=== PATIENT | female | born 1975 | race American Indian/Alaskan Native ===

== ENCOUNTER 2016-11-16 21:08 | Inpatient (IN) | payer OTHER ==
--- NOTE | 2016-11-16 23:30 | History and Physical Report ---
History of Present Illness Date of examination: 11/16/16 Date of admission: 11/16/16 23:14 Chief complaint: WateryDischarge History of present illness: 41-year-old at 38+5 weeks presents with above complaints and issues, she is a [facility] patient. Patient seen in triage for vaginal discharge, and deceleration noted. BPP obtained 6 out of 8, -2 for fluid, GABRIELA is ~ 4. Past History Past Medical History: hypertension (oral history of hypertension, no medication) Past Surgical History: no surgical history [employer] History: denies: chlamydia, gonorrhea, hepatitis B, hepatitis C, herpes, HIV , syphilis, trichomonas Social history: single, full code. denies: smoking, alcohol abuse, prescription drug abuse, IV drug use - Obstetrical History Expected Date of Delivery: 11/25/16 Actual Gestation: 38 Week(s) 5 Day(s) : 4 Para: 2 Medications and Allergies Allergies Allergy/AdvReac Type Severity Reaction Status Date / Time No Known Allergies Allergy Unverified 11/16/16 21:20 Review of Systems Constitutional: no weight gain, no fever, no chills, no sweats Eyes: no diplopia, no photophobia Cardiovascular: no chest pain, no palpitations, no syncope, no lightheadedness, no shortness of breath, no dyspnea on exertion, no high blood pressure Respiratory: no hemoptysis, no shortness of breath, no dyspnea on exertion Gastrointestinal: no abdominal pain, no nausea, no vomiting Genitourinary: no vaginal bleeding, no vaginal discharge, no leakage of fluid - Vital Signs Vital signs: Vital Signs Pulse BP Pulse Ox 86 141/78 97 11/16/16 22:25 11/16/16 22:25 11/16/16 22:25 Temp Pulse Resp BP Pulse Ox 92 H 141/78 98 11/16/16 22:40 11/16/16 22:25 11/16/16 22:40 - Physical Exam Lungs: Positive: Clear to auscultation, Normal air movement Abdomen: Positive: normal appearance, soft. Negative: distention, tenderness, guarding Genitourinary (Female): Positive: normal external genitalia Uterus: Positive: enlarged (EFW ~ 3500) Adnexa: both: normal Extremities: Positive: normal - Obstetrical FHR: category 1 Cervical Dilatation: 2 (Per RN exam) Results All other labs normal. Assessment and Plan A: 41-year-old at 38+5 weeks with oligohydramnios -No records available at this time P: -Admit -Routine labs -Start induction process -Anticipate normal vaginal delivery - Patient Problems (1) 38 weeks gestation of Current Visit: Yes Status: Acute (2) Oligohydramnios in third trimester Current Visit: Yes Status: Acute Qualifiers: Fetus number: F (3) AMA (advanced maternal age) multigravida 35+ Current Visit: Yes Status: Acute Qualifiers: Trimester: T
[2016-11-16] MEDS ORDERED: MINERAL OIL PO PRN (23:33)
[2016-11-16] MEDS ORDERED: BRETHINE IVP PRN (23:33)
[2016-11-16] MEDS ORDERED: XYLOCAINE 2% INFILTRATI ONE (23:33)
[2016-11-16] MEDS ORDERED: POLYCILLIN/NS 2 GM/100 ML 2 GM/100 ML BAG IV ONE (23:33)
[2016-11-16] MEDS ORDERED: SUBLIMAZE IV PRN (23:33)
[2016-11-16] MEDS ORDERED: ePHEDrine SULFATE IV PRN (23:33)
[2016-11-16] MEDS ORDERED: BRETHINE SUB-Q PRN (23:33)
[2016-11-16] MEDS ORDERED: ZOFRAN IV PRN (23:33)
[2016-11-16] MEDS ORDERED: PITOCin/NS 30 UNIT/500ML 30 UNITS/500 ML BAG IV SCH ×2 (23:45)
[2016-11-16] MEDS ORDERED: PITOCin/NS 20 UNIT/1000ML DRIP 20 UNITS/1,000 ML BAG IV SCH (23:45)
--- NOTE | 2016-11-16 23:47 | Ultrasound Report ---
FINAL REPORT PROCEDURE: US OB BPP WO NON-STRESS TECHNIQUE: Sonographic evaluation for breathing, movement, tone, and amniotic fluid volume was performed. CPT 44962 HISTORY: Non reassuring NST COMPARISON: No prior studies are available for comparison. FINDINGS: Amniotic fluid volume: Score of 0 breathing: Normal-score 2. movement: Normal-score 2. tone: Normal. Score: 6 of 8 IMPRESSION: Ultrasound biophysical profile or of 6 of 8
--- NOTE | 2016-11-16 23:50 | Ultrasound Report ---
FINAL REPORT PROCEDURE: US OB LIMITED TECHNIQUE: Real-time limited sonographic examination was performed for evaluation of size, position, heartbeat, fluid volume for each fetus with image documentation (1 or more fetuses). CPT 81790 HISTORY: GABRIELA for Decel COMPARISON: No prior studies are available for comparison. FINDINGS: There is a single fetus in a vertex presentation. heart activity is identified at 144 beats per minute. The 4 quadrant amniotic fluid volume is 4 centimeters. This is decreased. IMPRESSION: Single fetus in a vertex presentation. No other measurements are obtained on this study. Decreased amniotic fluid volume at 4 centimeters consistent with oligohydramnios.
[2016-11-17 00:50] LABS: Hemoglobin 11.5 gm/dl (10.1-14.3); Mean Corpuscular HGB Conc 33 % (30-34); Mean Corpuscular Hemoglobin 29 pg (28-32); Mean Corpuscular Volume 87 fl (79-97); Platelet Count 220 K/mm3 (140-440); Red Blood Count 4.02 M/mm3 (3.65-5.03); White Blood Count 12.9 K/mm3 (4.5-11.0)
[2016-11-17 00:54] LABS: Bacteria,Urine 1+ /HPF (Negative); Bilirubin,Urine NEG (Negative); Blood,Urine NEG (Negative); Ketones,Urine NEG (Negative); Leukocyte Esterase,Urine NEG (Negative); Mucus,Urine FEW /HPF; Nitrite,Urine NEG (Negative); Protein,Urine <15 mg/dL mg/dL (Negative); Urobilinogen,Urine < 2.0 mg/dL (<2.0)
[2016-11-17] MEDS: LACTATED RINGERS 1,000 ML IV SCH ×2 (00:55→10:35)
[2016-11-17 01:00] LABS: Red Cell Distribution Width 20.5 % (13.2-15.2)
[2016-11-17 01:10] LABS: Alanine Aminotransferase 13 units/L (7-56)
[2016-11-17 03:54] LABS: Lactate Dehydrogenase 178 units/L (91-180); Uric Acid 3.5 mg/dL (3.5-7.6)
[2016-11-17] MEDS: POLYCILLIN/NS 1 GM/50 ML 1 GM/50 ML BAG IV SCH ×2 (05:45→10:35)
--- NOTE | 2016-11-17 08:11 | Progress Note ---
Assessment and Plan - Patient Problems (1) 38 weeks gestation of Current Visit: Yes Status: Acute (2) Oligohydramnios in third trimester Current Visit: Yes Status: Acute Qualifiers: Fetus number: F (3) AMA (advanced maternal age) multigravida 35+ Current Visit: Yes Status: Acute Qualifiers: Trimester: T Subjective - Subjective Date of service: 11/17/16 Patient reports: new complaints, movement normal, no loss of fluid, no vaginal bleeding Objective - Vital Signs Vital Signs: Vital Signs - 12hr 11/16/16 11/16/16 11/16/16 22:25 22:30 22:35 Pulse Rate 86 86 86 Blood Pressure 141/78 O2 Sat by Pulse 97 96 98 Oximetry 11/16/16 11/17/16 11/17/16 22:40 01:12 01:13 Pulse Rate 92 H 88 83 Blood Pressure 130/81 O2 Sat by Pulse 98 98 Oximetry 11/17/16 11/17/16 11/17/16 01:17 01:22 01:27 Pulse Rate 90 78 81 Blood Pressure O2 Sat by Pulse 99 99 99 Oximetry 11/17/16 11/17/16 11/17/16 01:32 01:37 01:42 Pulse Rate 84 81 81 Blood Pressure O2 Sat by Pulse 99 99 98 Oximetry 11/17/16 11/17/16 11/17/16 01:43 01:47 01:57 Pulse Rate 77 85 95 H Blood Pressure 130/75 O2 Sat by Pulse 99 97 Oximetry 11/17/16 11/17/16 11/17/16 01:59 02:02 02:07 Pulse Rate 86 83 85 Blood Pressure O2 Sat by Pulse 84 99 99 Oximetry 11/17/16 11/17/16 11/17/16 02:12 02:13 02:17 Pulse Rate 81 79 82 Blood Pressure 126/63 O2 Sat by Pulse 99 98 Oximetry 11/17/16 11/17/16 11/17/16 02:22 02:27 02:33 Pulse Rate 85 86 79 Blood Pressure O2 Sat by Pulse 98 98 98 Oximetry 11/17/16 11/17/16 11/17/16 02:38 02:43 02:48 Pulse Rate 76 85 77 Blood Pressure 125/62 O2 Sat by Pulse 99 98 99 Oximetry 11/17/16 11/17/16 11/17/16 02:53 02:58 03:03 Pulse Rate 78 80 75 Blood Pressure O2 Sat by Pulse 99 98 99 Oximetry 11/17/16 11/17/16 11/17/16 03:08 03:13 03:18 Pulse Rate 73 85 82 Blood Pressure O2 Sat by Pulse 99 99 99 Oximetry 11/17/16 11/17/16 11/17/16 03:23 03:28 03:33 Pulse Rate 74 81 72 Blood Pressure O2 Sat by Pulse 98 99 99 Oximetry 11/17/16 11/17/16 11/17/16 03:38 03:43 03:48 Pulse Rate 81 79 73 Blood Pressure 139/77 O2 Sat by Pulse 98 99 99 Oximetry 11/17/16 11/17/16 11/17/16 03:53 03:58 04:03 Pulse Rate 78 73 73 Blood Pressure O2 Sat by Pulse 98 100 99 Oximetry 11/17/16 11/17/16 11/17/16 04:08 04:13 04:18 Pulse Rate 82 78 74 Blood Pressure 134/75 O2 Sat by Pulse 99 99 99 Oximetry 11/17/16 11/17/16 11/17/16 04:23 04:28 04:33 Pulse Rate 74 77 78 Blood Pressure O2 Sat by Pulse 98 99 98 Oximetry 11/17/16 11/17/16 11/17/16 04:38 04:43 04:48 Pulse Rate 93 H 86 80 Blood Pressure 128/77 O2 Sat by Pulse 99 98 98 Oximetry 11/17/16 11/17/16 11/17/16 04:53 04:58 05:03 Pulse Rate 87 80 83 Blood Pressure O2 Sat by Pulse 98 99 98 Oximetry 11/17/16 11/17/16 11/17/16 05:08 05:13 05:18 Pulse Rate 82 77 74 Blood Pressure 125/74 O2 Sat by Pulse 99 99 99 Oximetry 11/17/16 11/17/16 11/17/16 05:23 05:36 05:42 Pulse Rate 89 88 78 Blood Pressure O2 Sat by Pulse 98 95 96 Oximetry 11/17/16 11/17/16 11/17/16 05:43 05:46 05:47 Pulse Rate 77 87 82 Blood Pressure 137/77 O2 Sat by Pulse 94 96 Oximetry 11/17/16 11/17/16 11/17/16 05:51 05:52 05:57 Pulse Rate 81 75 80 Blood Pressure O2 Sat by Pulse 94 97 96 Oximetry 11/17/16 11/17/16 11/17/16 06:02 06:07 06:09 Pulse Rate 81 79 83 Blood Pressure O2 Sat by Pulse 95 96 94 Oximetry 11/17/16 11/17/16 11/17/16 06:12 06:14 06:17 Pulse Rate 97 H 75 78 Blood Pressure 126/75 O2 Sat by Pulse 97 96 Oximetry 11/17/16 11/17/16 11/17/16 06:20 06:22 06:27 Pulse Rate 82 75 73 Blood Pressure O2 Sat by Pulse 94 97 97 Oximetry 11/17/16 11/17/16 11/17/16 06:32 06:37 06:42 Pulse Rate 73 91 H 80 Blood Pressure O2 Sat by Pulse 96 97 94 Oximetry 11/17/16 11/17/16 11/17/16 06:43 06:47 06:52 Pulse Rate 80 85 77 Blood Pressure 120/80 O2 Sat by Pulse 98 97 Oximetry 11/17/16 11/17/16 11/17/16 06:55 06:57 07:02 Pulse Rate 80 73 79 Blood Pressure O2 Sat by Pulse 94 96 96 Oximetry 11/17/16 11/17/16 11/17/16 07:07 07:12 07:13 Pulse Rate 82 81 108 H Blood Pressure 145/79 O2 Sat by Pulse 95 95 Oximetry 11/17/16 11/17/16 11/17/16 07:17 07:27 07:28 Pulse Rate 89 83 83 Blood Pressure O2 Sat by Pulse 98 97 94 Oximetry 11/17/16 11/17/16 11/17/16 07:32 07:33 07:37 Pulse Rate 80 78 83 Blood Pressure O2 Sat by Pulse 94 94 95 Oximetry 11/17/16 11/17/16 11/17/16 07:42 07:43 07:46 Pulse Rate 80 81 86 Blood Pressure 135/77 O2 Sat by Pulse 96 94 Oximetry 11/17/16 11/17/16 11/17/16 07:47 07:52 07:57 Pulse Rate 83 87 85 Blood Pressure O2 Sat by Pulse 96 97 96 Oximetry 11/17/16 08:02 Pulse Rate 89 Blood Pressure O2 Sat by Pulse 97 Oximetry - Exam FHR: category 1 - Labs Labs: Abnormal Labs 06/27/17 06/27/17 00:05 00:05 WBC 12.9 H RDW 20.5 H Creatinine 0.5 L Laboratory Results - last 24 hr 11/17/16 11/17/16 11/17/16 00:05 00:05 00:08 WBC 12.9 H RBC 4.02 Hgb 11.5 Hct 35.0 MCV 87 MCH 29 MCHC 33 RDW 20.5 H Plt Count 220 Creatinine 0.5 L Estimated GFR > 60 Uric Acid 3.5 AST 18 ALT 13 Lactate Dehydrogenase 178 Urine Color Urine Turbidity Urine pH Ur Specific [place] Urine Protein Urine Glucose (UA) Urine Ketones Urine Blood Urine Nitrite Urine Bilirubin Urine Urobilinogen Ur Leukocyte Esterase Urine WBC (Auto) Urine RBC (Auto) U Epithel Cells (Auto) Urine Bacteria (Auto) Urine Mucus Blood Type B POSITIVE Antibody Screen TNR GAEL Antibody Screen Negative 11/17/16 00:26 WBC RBC Hgb Hct MCV MCH MCHC RDW Plt Count Creatinine Estimated GFR Uric Acid AST ALT Lactate Dehydrogenase Urine Color Yellow Urine Turbidity Clear Urine pH 7.0 Ur Specific [place] 1.015 Urine Protein <15 mg/dl Urine Glucose (UA) Neg Urine Ketones Neg Urine Blood Neg Urine Nitrite Neg Urine Bilirubin Neg Urine Urobilinogen < 2.0 Ur Leukocyte Esterase Neg Urine WBC (Auto) 1.0 Urine RBC (Auto) 4.0 U Epithel Cells (Auto) 1.0 Urine Bacteria (Auto) 1+ Urine Mucus Few Blood Type Antibody Screen GAEL Antibody Screen
--- NOTE | 2016-11-17 16:02 | Event Note ---
Date: 11/17/16 She was checked by RN water sponger today, it appears patient is only 1 cm dilated. Plan is to discontinue Pitocin and start Cervidil induction for this night
[2016-11-17] MEDS ORDERED: CERVIDIL VG ONE (19:10)
--- NOTE | 2016-11-18 08:13 | Progress Note ---
Assessment and Plan A: 41-year-old at 38+5 weeks with oligohydramnios -Cat 1 tracing P: -Remove Cervidil at 9 -start Pitocin augmentation -anticipate normal vaginal delivery - Patient Problems (1) 38 weeks gestation of Current Visit: Yes Status: Acute (2) Oligohydramnios in third trimester Current Visit: Yes Status: Acute Qualifiers: Fetus number: F (3) AMA (advanced maternal age) multigravida 35+ Current Visit: Yes Status: Acute Qualifiers: Trimester: T Subjective - Subjective Date of service: 11/18/16 Interval history: patient seen and examined, doing well with no issues. Status post Cervidil overnight Patient reports: new complaints, movement normal, no loss of fluid, no vaginal bleeding Objective - Vital Signs Vital Signs: Vital Signs - 12hr 11/17/16 11/17/16 11/17/16 20:15 20:20 20:25 Temperature Pulse Rate 90 87 89 Respiratory Rate Blood Pressure O2 Sat by Pulse 97 98 97 Oximetry 11/17/16 11/17/16 11/17/16 20:30 20:35 20:40 Temperature Pulse Rate 91 H 89 90 Respiratory Rate Blood Pressure O2 Sat by Pulse 97 97 97 Oximetry 11/17/16 11/17/16 11/17/16 20:45 20:50 20:55 Temperature Pulse Rate 92 H 89 92 H Respiratory Rate Blood Pressure O2 Sat by Pulse 98 96 97 Oximetry 11/17/16 11/17/16 11/17/16 21:00 21:05 21:10 Temperature Pulse Rate 86 94 H 94 H Respiratory Rate Blood Pressure O2 Sat by Pulse 98 97 96 Oximetry 11/17/16 11/17/16 11/17/16 21:15 21:20 21:25 Temperature Pulse Rate 93 H 97 H 90 Respiratory Rate Blood Pressure O2 Sat by Pulse 97 98 97 Oximetry 11/17/16 11/17/16 11/17/16 21:30 21:35 21:40 Temperature Pulse Rate 93 H 88 94 H Respiratory Rate Blood Pressure O2 Sat by Pulse 97 97 97 Oximetry 11/17/16 11/17/16 11/17/16 21:45 21:50 21:55 Temperature Pulse Rate 93 H 90 86 Respiratory Rate Blood Pressure O2 Sat by Pulse 95 96 97 Oximetry 11/17/16 11/17/16 11/17/16 22:00 22:05 22:10 Temperature Pulse Rate 86 88 97 H Respiratory Rate Blood Pressure O2 Sat by Pulse 97 98 98 Oximetry 11/17/16 11/17/16 11/17/16 22:15 22:20 22:25 Temperature Pulse Rate 98 H 91 H 93 H Respiratory Rate Blood Pressure O2 Sat by Pulse 96 96 95 Oximetry 11/17/16 11/17/16 11/17/16 22:30 22:35 22:38 Temperature 98.2 F Pulse Rate 91 H 87 Respiratory 18 Rate Blood Pressure O2 Sat by Pulse 96 98 Oximetry 11/17/16 11/17/16 11/17/16 22:40 22:45 23:00 Temperature Pulse Rate 90 84 90 Respiratory Rate Blood Pressure O2 Sat by Pulse 97 96 97 Oximetry 11/17/16 11/17/16 11/17/16 23:05 23:10 23:15 Temperature Pulse Rate 83 87 88 Respiratory Rate Blood Pressure O2 Sat by Pulse 97 99 99 Oximetry 11/17/16 11/17/16 11/17/16 23:16 23:20 23:22 Temperature 97.7 F Pulse Rate 83 84 Respiratory 20 Rate Blood Pressure 124/72 O2 Sat by Pulse 100 Oximetry 11/17/16 11/17/16 11/17/16 23:25 23:30 23:35 Temperature Pulse Rate 88 85 96 H Respiratory Rate Blood Pressure O2 Sat by Pulse 97 96 94 Oximetry 11/17/16 11/17/16 11/17/16 23:40 23:44 23:45 Temperature Pulse Rate 81 94 H 79 Respiratory Rate Blood Pressure O2 Sat by Pulse 96 94 100 Oximetry 11/17/16 11/17/16 11/18/16 23:50 23:55 00:00 Temperature Pulse Rate 84 87 85 Respiratory Rate Blood Pressure O2 Sat by Pulse 100 99 99 Oximetry 11/18/16 11/18/16 11/18/16 00:05 00:10 00:15 Temperature Pulse Rate 80 81 83 Respiratory Rate Blood Pressure O2 Sat by Pulse 97 97 97 Oximetry 11/18/16 11/18/16 11/18/16 00:20 00:25 00:30 Temperature Pulse Rate 84 87 84 Respiratory Rate Blood Pressure O2 Sat by Pulse 97 98 97 Oximetry 11/18/16 11/18/16 11/18/16 00:35 00:40 00:45 Temperature Pulse Rate 95 H 79 83 Respiratory Rate Blood Pressure O2 Sat by Pulse 97 99 97 Oximetry 11/18/16 11/18/16 11/18/16 00:50 00:55 01:00 Temperature Pulse Rate 88 89 87 Respiratory Rate Blood Pressure O2 Sat by Pulse 96 94 94 Oximetry 11/18/16 11/18/16 11/18/16 01:02 01:05 01:10 Temperature Pulse Rate 85 88 89 Respiratory Rate Blood Pressure O2 Sat by Pulse 93 93 93 Oximetry 11/18/16 11/18/16 11/18/16 01:15 01:20 01:25 Temperature Pulse Rate 87 89 96 H Respiratory Rate Blood Pressure O2 Sat by Pulse 93 93 93 Oximetry 11/18/16 11/18/16 11/18/16 01:30 01:35 01:40 Temperature Pulse Rate 83 82 86 Respiratory Rate Blood Pressure O2 Sat by Pulse 86 93 93 Oximetry 11/18/16 11/18/16 11/18/16 01:45 01:50 01:55 Temperature Pulse Rate 86 91 H 85 Respiratory Rate Blood Pressure O2 Sat by Pulse 94 94 95 Oximetry 11/18/16 11/18/16 11/18/16 02:00 02:05 02:10 Temperature Pulse Rate 88 82 86 Respiratory Rate Blood Pressure O2 Sat by Pulse 95 98 97 Oximetry 11/18/16 11/18/16 11/18/16 02:15 03:43 03:45 Temperature 97.8 F Pulse Rate 89 89 Respiratory 16 Rate Blood Pressure 134/75 O2 Sat by Pulse 99 98 Oximetry 11/18/16 11/18/16 11/18/16 04:43 04:48 04:53 Temperature Pulse Rate 86 87 90 Respiratory Rate Blood Pressure O2 Sat by Pulse 97 97 97 Oximetry 11/18/16 11/18/16 11/18/16 04:58 05:03 05:08 Temperature Pulse Rate 86 80 87 Respiratory Rate Blood Pressure O2 Sat by Pulse 96 96 96 Oximetry 11/18/16 11/18/16 11/18/16 05:13 05:17 05:18 Temperature Pulse Rate 88 95 H 81 Respiratory Rate Blood Pressure O2 Sat by Pulse 95 94 96 Oximetry 11/18/16 11/18/16 11/18/16 05:23 05:28 05:29 Temperature Pulse Rate 85 89 86 Respiratory Rate Blood Pressure O2 Sat by Pulse 95 95 94 Oximetry 11/18/16 11/18/16 11/18/16 05:33 05:35 05:38 Temperature Pulse Rate 85 89 86 Respiratory Rate Blood Pressure O2 Sat by Pulse 94 94 95 Oximetry 11/18/16 11/18/16 11/18/16 05:40 05:43 05:47 Temperature Pulse Rate 89 102 H 86 Respiratory Rate Blood Pressure O2 Sat by Pulse 94 96 94 Oximetry 11/18/16 11/18/16 11/18/16 05:48 05:53 05:58 Temperature Pulse Rate 84 91 H 85 Respiratory Rate Blood Pressure O2 Sat by Pulse 96 96 96 Oximetry 11/18/16 11/18/16 11/18/16 06:03 06:08 06:13 Temperature Pulse Rate 83 87 93 H Respiratory Rate Blood Pressure O2 Sat by Pulse 97 97 96 Oximetry 11/18/16 11/18/16 11/18/16 06:18 06:23 06:27 Temperature Pulse Rate 87 88 93 H Respiratory Rate Blood Pressure 138/77 O2 Sat by Pulse 96 96 Oximetry 11/18/16 11/18/16 11/18/16 06:33 06:34 06:38 Temperature Pulse Rate 86 83 86 Respiratory Rate Blood Pressure O2 Sat by Pulse 95 94 95 Oximetry 11/18/16 11/18/16 11/18/16 06:41 06:43 06:48 Temperature Pulse Rate 83 84 85 Respiratory Rate Blood Pressure O2 Sat by Pulse 94 96 97 Oximetry 11/18/16 11/18/16 11/18/16 06:50 06:53 06:58 Temperature Pulse Rate 84 89 84 Respiratory Rate Blood Pressure O2 Sat by Pulse 94 95 95 Oximetry 11/18/16 11/18/16 11/18/16 06:59 07:03 07:08 Temperature Pulse Rate 87 86 94 H Respiratory Rate Blood Pressure O2 Sat by Pulse 94 96 94 Oximetry 11/18/16 11/18/16 11/18/16 07:13 07:18 07:23 Temperature Pulse Rate 85 84 88 Respiratory Rate Blood Pressure O2 Sat by Pulse 94 96 95 Oximetry 11/18/16 11/18/16 11/18/16 07:28 07:33 07:37 Temperature Pulse Rate 85 91 H 92 H Respiratory Rate Blood Pressure O2 Sat by Pulse 94 96 92 Oximetry 11/18/16 11/18/16 11/18/16 07:38 07:42 07:43 Temperature Pulse Rate 84 87 81 Respiratory Rate Blood Pressure 144/88 O2 Sat by Pulse 97 91 98 Oximetry 11/18/16 11/18/16 11/18/16 07:52 07:57 08:01 Temperature Pulse Rate 85 87 86 Respiratory Rate Blood Pressure O2 Sat by Pulse 95 94 94 Oximetry 11/18/16 11/18/16 08:02 08:03 Temperature 98 F Pulse Rate 81 Respiratory 20 Rate Blood Pressure O2 Sat by Pulse 96 Oximetry - Exam FHR: category 1 Cervical Dilatation: 1 - Labs Labs: Abnormal Labs 11/17/16 11/17/16 00:05 00:05 WBC 12.9 H RDW 20.5 H Creatinine 0.5 L
[2016-11-18] MEDS ORDERED: PITOCin/NS 30 UNIT/500ML 30 UNITS/500 ML BAG IV SCH (09:00)
--- NOTE | 2016-11-18 15:02 | Progress Note ---
Assessment and Plan A: 41-year-old at 38+6 weeks with oligohydramnios -Cat 1 tracing P: -Will AROM at this time -Place IUPC -Continue present care -Anticipate normal vaginal delivery - Patient Problems (1) 38 weeks gestation of Current Visit: Yes Status: Acute (2) Oligohydramnios in third trimester Current Visit: Yes Status: Acute Qualifiers: Fetus number: F (3) AMA (advanced maternal age) multigravida 35+ Current Visit: Yes Status: Acute Qualifiers: Trimester: T Subjective - Subjective Date of service: 11/18/16 Interval history: Patient seen and examined, doing well with no issues. Status post Cervidil overnight, now on Pitocin at 20 mu per minute. On exam, she is 3 cm dilated Patient reports: new complaints, movement normal, no loss of fluid, no vaginal bleeding Objective - Vital Signs Vital Signs: Vital Signs - 12hr 11/18/16 11/18/16 11/18/16 03:43 03:45 04:43 Temperature 97.8 F Pulse Rate 89 86 Respiratory 16 Rate Blood Pressure 134/75 O2 Sat by Pulse 98 97 Oximetry 11/18/16 11/18/16 11/18/16 04:48 04:53 04:58 Temperature Pulse Rate 87 90 86 Respiratory Rate Blood Pressure O2 Sat by Pulse 97 97 96 Oximetry 11/18/16 11/18/16 11/18/16 05:03 05:08 05:13 Temperature Pulse Rate 80 87 88 Respiratory Rate Blood Pressure O2 Sat by Pulse 96 96 95 Oximetry 11/18/16 11/18/16 11/18/16 05:17 05:18 05:23 Temperature Pulse Rate 95 H 81 85 Respiratory Rate Blood Pressure O2 Sat by Pulse 94 96 95 Oximetry 11/18/16 11/18/16 11/18/16 05:28 05:29 05:33 Temperature Pulse Rate 89 86 85 Respiratory Rate Blood Pressure O2 Sat by Pulse 95 94 94 Oximetry 11/18/16 11/18/16 11/18/16 05:35 05:38 05:40 Temperature Pulse Rate 89 86 89 Respiratory Rate Blood Pressure O2 Sat by Pulse 94 95 94 Oximetry 11/18/16 11/18/16 11/18/16 05:43 05:47 05:48 Temperature Pulse Rate 102 H 86 84 Respiratory Rate Blood Pressure O2 Sat by Pulse 96 94 96 Oximetry 11/18/16 11/18/16 11/18/16 05:53 05:58 06:03 Temperature Pulse Rate 91 H 85 83 Respiratory Rate Blood Pressure O2 Sat by Pulse 96 96 97 Oximetry 11/18/16 11/18/16 11/18/16 06:08 06:13 06:18 Temperature Pulse Rate 87 93 H 87 Respiratory Rate Blood Pressure O2 Sat by Pulse 97 96 96 Oximetry 11/18/16 11/18/16 11/18/16 06:23 06:27 06:33 Temperature Pulse Rate 88 93 H 86 Respiratory Rate Blood Pressure 138/77 O2 Sat by Pulse 96 95 Oximetry 11/18/16 11/18/16 11/18/16 06:34 06:38 06:41 Temperature Pulse Rate 83 86 83 Respiratory Rate Blood Pressure O2 Sat by Pulse 94 95 94 Oximetry 11/18/16 11/18/16 11/18/16 06:43 06:48 06:50 Temperature Pulse Rate 84 85 84 Respiratory Rate Blood Pressure O2 Sat by Pulse 96 97 94 Oximetry 11/18/16 11/18/16 11/18/16 06:53 06:58 06:59 Temperature Pulse Rate 89 84 87 Respiratory Rate Blood Pressure O2 Sat by Pulse 95 95 94 Oximetry 11/18/16 11/18/16 11/18/16 07:03 07:08 07:13 Temperature Pulse Rate 86 94 H 85 Respiratory Rate Blood Pressure O2 Sat by Pulse 96 94 94 Oximetry 11/18/16 11/18/16 11/18/16 07:18 07:23 07:28 Temperature Pulse Rate 84 88 85 Respiratory Rate Blood Pressure O2 Sat by Pulse 96 95 94 Oximetry 11/18/16 11/18/16 11/18/16 07:33 07:37 07:38 Temperature Pulse Rate 91 H 92 H 84 Respiratory Rate Blood Pressure 144/88 O2 Sat by Pulse 96 92 97 Oximetry 11/18/16 11/18/16 11/18/16 07:42 07:43 07:52 Temperature Pulse Rate 87 81 85 Respiratory Rate Blood Pressure O2 Sat by Pulse 91 98 95 Oximetry 11/18/16 11/18/16 11/18/16 07:57 08:01 08:02 Temperature Pulse Rate 87 86 81 Respiratory Rate Blood Pressure O2 Sat by Pulse 94 94 96 Oximetry 11/18/16 11/18/16 11/18/16 08:03 08:07 08:10 Temperature 97.6 F Pulse Rate 88 78 Respiratory 20 Rate Blood Pressure 135/81 O2 Sat by Pulse 97 Oximetry 11/18/16 11/18/16 11/18/16 08:12 09:39 09:44 Temperature Pulse Rate 90 91 H 90 Respiratory Rate Blood Pressure 129/91 O2 Sat by Pulse 94 98 98 Oximetry 11/18/16 11/18/16 11/18/16 09:49 09:54 09:59 Temperature Pulse Rate 98 H 100 H 90 Respiratory Rate Blood Pressure O2 Sat by Pulse 98 99 97 Oximetry 11/18/16 11/18/16 11/18/16 10:04 10:09 10:14 Temperature Pulse Rate 96 H 90 89 Respiratory Rate Blood Pressure O2 Sat by Pulse 97 98 97 Oximetry 11/18/16 11/18/16 11/18/16 10:19 10:24 10:29 Temperature Pulse Rate 90 107 H 91 H Respiratory Rate Blood Pressure O2 Sat by Pulse 98 98 99 Oximetry 11/18/16 11/18/16 11/18/16 10:46 10:48 10:51 Temperature Pulse Rate 85 91 H 81 Respiratory Rate Blood Pressure 138/72 O2 Sat by Pulse 100 100 Oximetry 11/18/16 11/18/16 11/18/16 10:56 11:01 11:06 Temperature Pulse Rate 86 92 H 89 Respiratory Rate Blood Pressure O2 Sat by Pulse 100 100 100 Oximetry 11/18/16 11/18/16 11/18/16 11:11 11:16 11:21 Temperature Pulse Rate 90 91 H 88 Respiratory Rate Blood Pressure O2 Sat by Pulse 100 100 100 Oximetry 11/18/16 11/18/16 11/18/16 11:26 11:31 11:36 Temperature Pulse Rate 87 92 H 86 Respiratory Rate Blood Pressure O2 Sat by Pulse 100 100 100 Oximetry 11/18/16 11/18/16 11/18/16 11:41 11:46 11:51 Temperature Pulse Rate 84 84 83 Respiratory Rate Blood Pressure O2 Sat by Pulse 100 100 99 Oximetry 11/18/16 11/18/16 11/18/16 11:56 12:01 12:11 Temperature Pulse Rate 86 87 88 Respiratory Rate Blood Pressure O2 Sat by Pulse 100 99 99 Oximetry 11/18/16 11/18/16 11/18/16 12:16 12:21 12:26 Temperature Pulse Rate 85 87 85 Respiratory Rate Blood Pressure O2 Sat by Pulse 97 96 97 Oximetry 11/18/16 11/18/16 11/18/16 12:31 12:36 12:41 Temperature Pulse Rate 87 82 88 Respiratory Rate Blood Pressure O2 Sat by Pulse 97 98 96 Oximetry 11/18/16 11/18/16 11/18/16 12:42 12:46 12:51 Temperature Pulse Rate 90 90 87 Respiratory Rate Blood Pressure O2 Sat by Pulse 94 97 97 Oximetry 11/18/16 11/18/16 11/18/16 12:55 12:56 13:01 Temperature Pulse Rate 89 82 82 Respiratory Rate Blood Pressure O2 Sat by Pulse 94 95 97 Oximetry 11/18/16 11/18/16 11/18/16 13:04 13:06 13:11 Temperature Pulse Rate 90 83 93 H Respiratory Rate Blood Pressure O2 Sat by Pulse 92 97 95 Oximetry 11/18/16 11/18/16 11/18/16 13:16 13:18 13:21 Temperature Pulse Rate 87 85 90 Respiratory Rate Blood Pressure O2 Sat by Pulse 98 90 99 Oximetry 11/18/16 11/18/16 11/18/16 13:26 13:31 13:36 Temperature Pulse Rate 90 83 86 Respiratory Rate Blood Pressure O2 Sat by Pulse 96 95 95 Oximetry 11/18/16 11/18/16 11/18/16 13:50 13:55 14:00 Temperature Pulse Rate 83 80 82 Respiratory Rate Blood Pressure 132/85 O2 Sat by Pulse 100 98 97 Oximetry 11/18/16 11/18/16 11/18/16 14:05 14:10 14:15 Temperature Pulse Rate 79 77 73 Respiratory Rate Blood Pressure O2 Sat by Pulse 96 95 96 Oximetry 11/18/16 11/18/16 11/18/16 14:20 14:25 14:30 Temperature Pulse Rate 78 78 82 Respiratory Rate Blood Pressure O2 Sat by Pulse 96 97 95 Oximetry 11/18/16 11/18/16 11/18/16 14:35 14:40 14:45 Temperature Pulse Rate 86 71 72 Respiratory Rate Blood Pressure O2 Sat by Pulse 98 99 97 Oximetry 11/18/16 14:50 Temperature Pulse Rate 92 H Respiratory Rate Blood Pressure O2 Sat by Pulse 98 Oximetry - Exam FHR: category 1 Cervical Dilatation: 3 station: -1 - Labs Labs: Abnormal Labs 11/17/16 11/17/16 00:05 00:05 WBC 12.9 H RDW 20.5 H Creatinine 0.5 L
--- NOTE | 2016-11-18 15:29 | Event Note ---
Date: 11/18/16 Reviewed her prenatals, GBS unavailable at this time. Called the clinical technology lab at [phone], it appears sample was only sent ~ 24 hours ago. Microbiology will review sample in about 2 hours and call with a preliminary result
[2016-11-18] MEDS: LACTATED RINGERS 1,000 ML IV SCH (15:46)
[2016-11-18] MEDS: POLYCILLIN/NS 1 GM/50 ML 1 GM/50 ML BAG IV SCH (16:03)
[2016-11-18] MEDS ORDERED: METHERGINE IM ONE (16:57)
[2016-11-18] MEDS ORDERED: DULCOLAX PR PRN (17:09)
[2016-11-18] MEDS ORDERED: TUCKS PAD TP PRN (17:09)
[2016-11-18] MEDS ORDERED: ZOFRAN IV PRN (17:09)
[2016-11-18] MEDS ORDERED: PHENERGAN PR PRN (17:09)
[2016-11-18] MEDS ORDERED: LANSINOH TP PRN (17:09)
[2016-11-18] MEDS ORDERED: METHERGINE IM PRN (17:09)
[2016-11-18] MEDS ORDERED: MILK OF MAGNESIA PO PRN (17:09)
[2016-11-18] MEDS ORDERED: TYLENOL PO PRN (17:09)
[2016-11-18] MEDS ORDERED: BENADRYL PO PRN (17:09)
[2016-11-18] MEDS ORDERED: PHENERGAN PO PRN (17:09)
--- NOTE | 2016-11-18 17:09 | Procedure Note ---
OB Delivery Note - Delivery Date of Delivery: 11/18/16 Surgeon: MAYE VALLE Estimated blood loss: 500cc - Vaginal Delivery presentation: vertex Delivery position: OA Intrapartum events: hemorrhage Delivery induction: cervidil Delivery augmentation: rupture of membranes, pitocin Delivery monitor: external FHT, external uterine, internal uterine Route of delivery: Delivery placenta: spontaneous Delivery cord: 3 umbilical vessels Episiotomy: none Delivery laceration: none Anesthesia: none - A at 1 minute: 8 at 5 minutes: 9 Gender: Male (delivery at 16:53, infant weight 6 lbs. 2 oz. or 2777 g)
[2016-11-18] MEDS ORDERED: SODIUM CHLORIDE FLUSH SYRINGE 10 ML IV SCH (18:00)
[2016-11-18] MEDS ORDERED: PITOCin/NS 20 UNIT/1000ML DRIP 20 UNITS/1,000 ML BAG IV SCH (18:00)
[2016-11-18] MEDS: MOTRIN PO SCH (18:37)
[2016-11-18] MEDS: NORCO 5/325 PO PRN (20:32)
[2016-11-19] MEDS: COLACE PO SCH ×2 (00:10→09:15)
[2016-11-19] MEDS: SENOKOT S PO SCH (00:10)
[2016-11-19] MEDS: MOTRIN PO SCH ×7 (00:13→23:12)
[2016-11-19 05:14] LABS: Hematocrit 32.3 % (30.3-42.9); Hemoglobin 10.8 gm/dl (10.1-14.3)
[2016-11-19] MEDS: NORCO 5/325 PO PRN ×2 (05:48→20:40)
--- NOTE | 2016-11-19 07:57 | Progress Note ---
Assessment and Plan - Patient Problems (1) (normal spontaneous vaginal delivery) Onset Date: 11/19/16 Current Visit: Yes Status: Acute Plan to address problem: A: S/P - PPD #1 Doing well P: Anticipate discharge tomorrow Subjective - Subjective Date of service: 11/19/16 Principal diagnosis: S/P - PPD #1 Interval history: Pt is feeling well without complaints except abdominal cramps. Bleeding improved. Patient reports: appetite normal, voiding normally, pain well controlled, flatus , ambulating normally [place]: doing well, nursing well, bottle feeding Objective - Vital Signs Latest vital signs: Vital Signs Temp Pulse Pulse Resp BP BP Pulse Ox 11/19/16 04:45 98.5 F 84 20 120/78 11/19/16 00:40 98.6 F 76 20 139/91 11/18/16 19:50 98.2 F 86 20 138/65 11/18/16 17:52 93 H 151/80 11/18/16 17:42 88 125/64 11/18/16 17:32 95 H 147/74 11/18/16 17:17 98 H 141/78 11/18/16 17:16 93 H 137/81 11/18/16 16:41 97 H 100 11/18/16 16:36 101 H 100 11/18/16 16:31 95 H 100 11/18/16 16:26 96 H 100 11/18/16 16:21 87 100 11/18/16 16:16 82 100 11/18/16 16:11 95 H 98 11/18/16 16:08 100 H 93 11/18/16 16:06 76 100 11/18/16 16:01 84 99 11/18/16 15:56 81 100 11/18/16 15:51 88 100 11/18/16 15:46 96 H 100 11/18/16 15:41 80 100 11/18/16 15:36 86 100 11/18/16 15:31 85 100 11/18/16 15:26 78 98 11/18/16 15:24 84 85 11/18/16 15:21 78 100 11/18/16 15:16 78 100 11/18/16 15:11 81 100 11/18/16 15:07 111 H 91 11/18/16 15:06 107 H 98 11/18/16 15:01 94 H 100 11/18/16 14:50 92 H 98 11/18/16 14:45 72 97 11/18/16 14:40 71 99 11/18/16 14:35 86 98 11/18/16 14:30 82 95 11/18/16 14:25 78 97 11/18/16 14:20 78 96 11/18/16 14:15 73 96 11/18/16 14:10 77 95 11/18/16 14:05 79 96 11/18/16 14:00 82 97 11/18/16 13:55 80 98 11/18/16 13:50 83 132/85 100 11/18/16 13:36 86 95 11/18/16 13:31 83 95 11/18/16 13:26 90 96 11/18/16 13:21 90 99 11/18/16 13:18 85 90 11/18/16 13:16 87 98 11/18/16 13:11 93 H 95 11/18/16 13:06 83 97 11/18/16 13:04 90 92 11/18/16 13:01 82 97 11/18/16 12:56 82 95 11/18/16 12:55 89 94 11/18/16 12:51 87 97 11/18/16 12:46 90 97 11/18/16 12:42 90 94 11/18/16 12:41 88 96 11/18/16 12:36 82 98 11/18/16 12:31 87 97 11/18/16 12:26 85 97 11/18/16 12:21 87 96 11/18/16 12:16 85 97 11/18/16 12:11 88 99 11/18/16 12:01 87 99 11/18/16 11:56 86 100 11/18/16 11:51 83 99 11/18/16 11:46 84 100 11/18/16 11:41 84 100 11/18/16 11:36 86 100 11/18/16 11:31 92 H 100 11/18/16 11:26 87 100 11/18/16 11:21 88 100 11/18/16 11:16 91 H 100 11/18/16 11:11 90 100 11/18/16 11:06 89 100 11/18/16 11:01 92 H 100 11/18/16 10:56 86 100 11/18/16 10:51 81 100 11/18/16 10:48 91 H 138/72 11/18/16 10:46 85 100 11/18/16 10:29 91 H 99 11/18/16 10:24 107 H 98 11/18/16 10:19 90 98 11/18/16 10:14 89 97 11/18/16 10:09 90 98 11/18/16 10:04 96 H 97 11/18/16 09:59 90 97 11/18/16 09:54 100 H 99 11/18/16 09:49 98 H 98 11/18/16 09:44 90 98 11/18/16 09:39 91 H 129/91 98 11/18/16 08:12 90 94 11/18/16 08:10 78 135/81 11/18/16 08:07 88 97 11/18/16 08:03 97.6 F 20 11/18/16 08:02 81 96 11/18/16 08:01 86 94 11/18/16 07:57 87 94 Intake and Output 11/18/16 11/19/16 11/19/16 22:59 06:59 14:59 Intake Total 480 Output Total 1100 Balance -620 Intake: Oral 480 Output: Urine 1100 Void 1100 Other: Total, Intake Amount 240 Total, Output Amount 500 # Voids Void 2 Estimated Blood Loss 500 - Exam Breasts: Present: deferred Cardiovascular: Present: Regular rate Lungs: Present: Clear to auscultation Abdomen: Present: normal appearance, soft Uterus: Present: normal, firm, fundal height below umbilicus Extremities: Present: normal - Labs Labs: Laboratory Tests 11/17/16 11/17/16 11/17/16 00:05 00:05 00:08 WBC 12.9 H RBC 4.02 Hgb 11.5 Hct 35.0 MCV 87 MCH 29 MCHC 33 RDW 20.5 H Plt Count 220 Creatinine 0.5 L Estimated GFR > 60 Uric Acid 3.5 AST 18 ALT 13 Lactate Dehydrogenase 178 Urine Color Urine Turbidity Urine pH Ur Specific [place] Urine Protein Urine Glucose (UA) Urine Ketones Urine Blood Urine Nitrite Urine Bilirubin Urine Urobilinogen Ur Leukocyte Esterase Urine WBC (Auto) Urine RBC (Auto) U Epithel Cells (Auto) Urine Bacteria (Auto) Urine Mucus Blood Type B POSITIVE Antibody Screen TNR GAEL Antibody Screen Negative 11/17/16 11/19/16 00:26 04:36 WBC RBC Hgb 10.8 Hct 32.3 MCV MCH MCHC RDW Plt Count Creatinine Estimated GFR Uric Acid AST ALT Lactate Dehydrogenase Urine Color Yellow Urine Turbidity Clear Urine pH 7.0 Ur Specific [place] 1.015 Urine Protein <15 mg/dl Urine Glucose (UA) Neg Urine Ketones Neg Urine Blood Neg Urine Nitrite Neg Urine Bilirubin Neg Urine Urobilinogen < 2.0 Ur Leukocyte Esterase Neg Urine WBC (Auto) 1.0 Urine RBC (Auto) 4.0 U Epithel Cells (Auto) 1.0 Urine Bacteria (Auto) 1+ Urine Mucus Few Blood Type Antibody Screen GAEL Antibody Screen
[2016-11-19] MEDS: FEOSOL PO SCH (09:15)
[2016-11-19] MEDS: PRENATAL VITAMIN PO SCH (09:15)
[2016-11-20] MEDS: FEOSOL PO SCH ×2 (04:47→10:59)
[2016-11-20] MEDS: COLACE PO SCH ×2 (04:49→10:59)
[2016-11-20] MEDS: SENOKOT S PO SCH ×2 (04:49→10:30)
[2016-11-20] MEDS ORDERED: BOOSTRIX IM ONE (06:05)
[2016-11-20] MEDS: MOTRIN PO SCH ×4 (06:35→18:16)
--- NOTE | 2016-11-20 10:09 | Discharge Summary ---
Providers - Providers Date of Admission: 11/16/16 23:14 Date of discharge: 11/20/16 Attending physician: MAYE VALLE Primary care physician: MAYE VALLE Hospitalization Reason for admission: induction of labor, IUP at term, other (Oligohydramnios) Delivery: Episiotomy: none Laceration: none Other procedures: none complications: none Discharge diagnosis: IUP at term delivered [place] baby: male Hospital course: Unremarkable. Condition at discharge: Good Disposition: DC-01 TO HOME OR SELFCARE - Discharge Diagnoses (1) (normal spontaneous vaginal delivery) Status: Resolved Plan - Discharge Medications Prescriptions: HYDROcodone/APAP 5-325 [[place] 5/325] 1 each PO Q6HR PRN #7 tablet PRN Reason: Pain Ibuprofen [Motrin 600 MG tab] 600 mg PO Q8H PRN #30 tablet PRN Reason: Pain Multivitamin with Iron [Multivitamins with Iron] 1 each PO DAILY #30 tablet - Provider Discharge Summary Activity: routine, no sex for 6 weeks, no heavy lifting 4 weeks, no strenuous exercise Diet: routine Instructions: routine Additional instructions: [] Smoking cessation referral if applicable(refer to patient education folder for contact #) [] Refer to [facility]'s [facility] Booklet Call your doctor immediately for: * Fever > 100.5 * Heavy vaginal bleeding ( >1 pad per hour) * Severe persistent headache * Shortness of breath * Reddened, hot, painful area to leg or breast * Drainage or odor from incision. * Keep incision clean and dry at all times and follow doctor's instructions regarding bathing/showering - Follow up plan Follow up: MAYE VALLE MD [Primary Care Provider] - 6 Weeks
[2016-11-20] MEDS: NORCO 5/325 PO PRN (10:30)
[2016-11-20] MEDS: PRENATAL VITAMIN PO SCH (10:59)
[2016-11-20 17:56] VITALS: BP 146/60
== END 2016-11-20 | disposition home or self-care (01) | DRG 774 ==
LOC: TRG 21:08 → LD 23:14 → OB 11-18 19:22
PROVIDERS: ADMIT Obstetrics & Gynecology Gynecology; ATTEND Obstetrics & Gynecology Gynecology
PROC: 10E0XZZ Delivery of Products of Conception, External Approach (ICD-10-PCS; principal; 2016-11-18)
PROC: 3E0P7GC Introduction of Other Therapeutic Substance into Female Reproductive, Via Natural or Artificial Opening (ICD-10-PCS; 2016-11-18)
DX: O41.03X0 Oligohydramnios, third trimester, not applicable or unspecified (principal); O72.1 Other immediate postpartum hemorrhage; Z3A.38 38 weeks gestation of pregnancy; Z37.0 Single live birth; O16.4 Unspecified maternal hypertension, complicating childbirth; O09.523 Supervision of elderly multigravida, third trimester; O76 Abnormality in fetal heart rate and rhythm complicating labor and delivery
CPT/HCPCS: 36415; 59200; 76815; 76819; 81001; 82565; 83615; 84450; 84460; 84550; 85014; 85018; 85027; 86850; 86900; 86901; 90715; 99211; A6250; G0463; J0290; J2210; J2405; J2590; J3010; J7120